=== PATIENT | female | born 1975 | race Caucasian/White ===

== ENCOUNTER → 2018-06-13 | Outpatient (CLI) | payer OTHER ==
[~2018-06-13] MED LIST: ALBUTEROL2.5 MG/31 INH; ALL DAY ALLERGY10 M3 PO; CATAPRES-TTS 10.1 MG TD; CLONIDINE0.1 PO; CYMBALTA60 MG; CYMBALTA60 MG PO; GABAPENTIN 100100 MG PO; HYDROCHLOROTHIA25 M2 PO; HYDROCODONE-AP1 EAC6 PO; LASIX 40 MG TAB40 M2; LIPITOR 20 MG T20 M1 PO; LOPRESSOR50 PO; PEPCID20 MG PO; POTASSIUM20; POTASSIUM20 PO; ROBAXIN 750 MG750 M1 PO; TORADOL 10 MG T10 MG PO; TRAZODONE 150150 M1 PO
--- NOTE | 2018-06-27 14:58 | SLEEP ---
[address] [address] SLEEP STUDY REPORT Name: CHAZLEANDRO THORPE Room: [facility]#: [id number] Admission: 06/13/18 Attend Phys: Damari Motne DO Discharge: Date of : 71 Report #: [id number] THIS REPORT FOR: //name// CC: Damari Monte This study has been reviewed in its entirety by a board certified sleep specialist DATE OF SERVICE: 06/13/2018 The patient is 43 years old who underwent a home sleep study performed at [facility]. The total recording time was 470 minutes. During the night study, the patient had 295 obstructive apneas, no central or mixed apneas and 87 hypopneas. The patient's apnea hypopnea index was 48.7 per hour. Supine sleep was not observed. Review of nocturnal oximetry study revealed an average oxygen saturation of 92% with a lowest of 81%. 61 minutes were spent at an oxygen saturation of less than 90%. Mean heart rate was 80 beats per minute. IMPRESSION: 1. Severe sleep apnea-hypopnea syndrome at an apnea hypopnea index of 48 per hour. 2. Nocturnal hypoxia secondary to obstructive sleep apnea. RECOMMENDATIONS: 1. The patient would benefit from in-lab CPAP titration study. 2. Once optimum CPAP pressure is achieved, then follow up in 4-6 weeks to assess compliance with CPAP and to document clinical improvement. 3. Weight loss is advised. 4. 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 5. Cautioned regarding driving until symptoms of sleep apnea resolved with the use of CPAP. <ELECTRONICALLY SIGNED> By: Josemanuel Dietrich MD 06/27/18 1458 [id number] [id number] Dietrich MD /nt
== END ==
LOC: M.SLEEPLAB 09:00
DX: R40.0 Somnolence (principal); J45.909 Unspecified asthma, uncomplicated; I10 Essential (primary) hypertension; Z95.0 Presence of cardiac pacemaker

== ENCOUNTER → 2018-08-01 | Outpatient (CLI) | payer OTHER ==
--- NOTE | 2018-08-02 16:56 | SLEEP ---
[address] [address] SLEEP STUDY REPORT Name: LEANDRO FELIZ Room: [facility]#: [id number] Admission: 08/01/18 Attend Phys: Damari Monte DO Discharge: Date of : 71 Report #: [id number] THIS REPORT FOR: //name// CC: Damari Monte This study has been reviewed in its entirety by a board certified sleep specialist DATE OF SERVICE: 08/01/2018 ATTENDING PHYSICIAN: Dr. Damari Monte. The patient is 43 years old who weighs 266 pounds with a BMI of 41.7. The patient had a home sleep study and was found to have severe RIKA at an AHI of 48 per hour. The patient returned to [facility] for CPAP titration study. During the night study, the patient spent 445 minutes in bed and slept for 327 minutes with a sleep efficiency of 74%. Sleep latency was 18 minutes with a REM latency of 184 minutes. Overall, sleep architecture showed normal stage 1 and stage 2 sleep, increased slow wave and normal REM sleep. During the night study, the patient's EKG monitoring revealed an average heart rate of 77 beats per minute, normal sinus rhythm with a maximum heart rate of 94 beats per minute. PLMS were not observed. The patient was started on CPAP at a pressure of 5 cm water and titrated up to 19 cm water. At this pressure, best results were seen. The patient slept for 176 minutes, 73 minutes in REM sleep. The patient had lateral sleep mostly, but minimal supine sleep was observed. The patient's AHI was reduced to only 0.7 per hour and oxygen saturation remained above 88%. The patient tolerated the pressure well. IMPRESSION: 1. Severe sleep apnea diagnosed by home sleep study. 2. No clinically significant PLMS. RECOMMENDATIONS: 1. CPAP at 19 cm water completely eliminated the patient's sleep apnea and should be used on a nightly basis. 2. Follow up in 4-6 weeks to assess compliance with CPAP and to document clinical improvement. 3. 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 [address] SLEEP STUDY REPORT Name: LEANDRO FELIZ Room: [facility]#: [id number] Admission: 08/01/18 Attend Phys: Damari Monte DO Discharge: Date of : 71 Report #: [id number] 4. Weight loss is advised. 5. Caution regarding driving until symptoms of sleep apnea resolve with the use of CPAP. <ELECTRONICALLY SIGNED> By: Josemanuel Dietrich MD 08/02/18 1656 1409 [id number] Dietrich MD /nt
== END ==
LOC: M.SLEEPLAB 19:29
DX: G47.30 Sleep apnea, unspecified (principal)